=== PATIENT | female | born 1970 | race Caucasian/White ===

== ENCOUNTER 2021-07-07 13:20 | Outpatient (REF) | payer BC, SELFPAY ==
--- NOTE | ~2021-07-07 | XR_ITS ---
EXAMINATION: XR FOOT, RIGHT CLINICAL INFORMATION: Pain right foot COMPARISON: None TECHNIQUE: AP, lateral, and oblique views of the right foot. FINDINGS: The bones and soft tissues are normal. No fracture. Alignment is anatomic. Joint spaces are maintained. There is a small calcaneal heel and retrocalcaneal enthesophyte. There is moderate dorsal midfoot soft tissue swelling. XR/XR foot RT min 3V IMPRESSION: Small calcaneal heel and retrocalcaneal enthesophyte.
== END 2021-07-07 13:21 | disposition home or self-care (01) ==
LOC: HO.HMGCX 13:20
PROVIDERS: PCP Internal Medicine; Visit Provider Internal Medicine
DX: M79.671 Pain in right foot (principal)
CPT/HCPCS: 73630

== ENCOUNTER 2021-12-02 09:38 | Outpatient (REF) | payer BC, SELFPAY ==
--- NOTE | ~2021-12-02 | US_ITS ---
EXAMINATION: US VENOUS ULTRASOUND WITH DOPPLER LOWER EXTREMITY, RIGHT CLINICAL INFORMATION: Pain in right leg. Rule out DVT. COMPARISON: None TECHNIQUE: Ultrasound of the deep veins is performed from the hip to the calf with compression sonography and color and pulse Doppler assessment. Spectral analysis with color-flow imaging is performed. FINDINGS: There is normal venous compression and respiratory variation and augmented flow. The visualized common femoral vein, superficial femoral vein, profunda femoral vein, popliteal vein, and the trifurcation region shows no evidence of deep venous thrombosis. There is no significant popliteal fossa cyst. There are prominent but patent superficial varicose veins in the calf extending to the ankle. If the patient's symptoms persist, followup ultrasound in 5 days 7 days might be of value to exclude proximal propagation from a non-visualized calf vein. US/US venous duplex LE RT IMPRESSION: No DVT demonstrated in the right lower extremity.
[2021-12-02 11:23] LABS: MANUAL DIFF FLAG NO
[2021-12-02 11:33] LABS: Basophils Absolute Auto 0.1 X10*3/uL (0.0-0.2); Basophils Percent Auto 0.7 % (0-2); Eosinophils Absolute Auto 0.1 X10*3/uL (0.0-0.4); Hematocrit 42.4 % (37.0-47.0); Hemoglobin 13.5 g/dl (12.0-16.0); Imm Gran Abs Auto 0.02 X10*3/uL (0.00-0.03); Imm Gran Pct Auto 0.3 % (0.0-0.4); Lymphocytes Absolute Auto 2.1 X10*3/uL (1.2-4.9); Lymphocytes Percent Auto 29.7 % (20-40); Mean Corpuscular HGB Conc 31.8 g/dl (31.0-35.0); Mean Corpuscular Hemoglobin 27.8 pg (27.0-33.0); Mean Corpuscular Volume 87.2 fL (80.0-98.0); Monocytes Absolute Auto 0.5 X10*3/uL (0.1-1.2); Monocytes Percent Auto 7.6 % (2-11); Neutrophils Absolute Auto 4.2 x10*3/uL (2.0-8.3); Neutrophils Percent Auto 59.7 % (45-73); Platelet Count 242 X10*3/uL (160-400); Red Blood Count 4.86 X10*6/uL (4.20-5.50); Red Cell Distribution Width 12.3 % (11.0-16.0); White Blood Count 7.1 X10*3/uL (4.8-10.8)
[2021-12-02 11:47] LABS: B Type Natriuretic Peptide < 10 pg/mL (<100)
[2021-12-02 11:51] LABS: Alanine Aminotransferase 27 U/L (0-31); Anion Gap 13 (12-20); Aspartate Amino Transferase 24 U/L (5-31); Blood Urea Nitrogen 18 mg/dL (9-16); Calcium 9.2 mg/dL (8.4-10.2); Carbon Dioxide 28 mmol/L (22-29); Chloride 102 mmol/L (96-108); Cholesterol 242 mg/dL; Estimated Glomerular Filt Rate > 60; Glucose Fasting 91 mg/dL (60-99); HDL Cholesterol 49 mg/dL; LDL Cholesterol Calculated 162 mg/dl; Potassium 4.3 mmol/L (3.3-5.1); Sodium 139 mmol/L (135-145); Triglycerides 157 mg/dL
[2021-12-02 12:11] LABS: TSH reflex Free T4 0.96 uIU/mL (0.32-4.0); Vitamin D 25-OH Total 29.5 ng/mL (>30)
== END 2021-12-02 09:39 | disposition home or self-care (01) ==
LOC: HO.HMGCLDS 09:38
PROVIDERS: Visit Provider Internal Medicine
DX: I83.813 Varicose veins of bilateral lower extremities with pain (principal); M79.604 Pain in right leg; M79.89 Other specified soft tissue disorders; E66.9 Obesity, unspecified; Z86.39 Personal history of other endocrine, nutritional and metabolic disease
CPT/HCPCS: 36415; 80048; 80061; 82306; 83880; 84443; 84450; 84460; 85025; 93971

== ENCOUNTER 2022-03-23 10:24 | Outpatient (REF) | payer BC, SELFPAY ==
--- NOTE | ~2022-03-23 | US_ITS ---
EXAMINATION: US LOWER EXTREMITY VENOUS (REFLUX EXAM), BILATERAL CLINICAL INDICATION: Chronic venous insufficiency with lower extremity varicose veins COMPARISON: None. TECHNIQUE: Color flow triplex imaging and compression Doppler was performed to evaluate both the deep and the superficial systems bilaterally. To evaluate the superficial system, the examination was performed in the upright position. Color-flow Doppler ultrasound and compression ultrasound were utilized. In addition, maneuvers were utilized to demonstrate reflux. FINDINGS: 1. DEEP VENOUS ULTRASOUND OF THE RIGHT LOWER EXTREMITY: Common Femoral Vein: Compressible, normal respiratory variation and augmented flow. Femoral Vein: Compressible, normal color flow and augmentation. Popliteal Vein: Compressible, normal augmentation. Deep Reflux: There is no evidence of reflux in the deep system in either the common femoral vein or the popliteal vein. There is no evidence of a Coronado's cyst. 2. SUPERFICIAL ULTRASOUND WITH DOPPLER OF RIGHT LOWER EXTREMITY: GREAT SAPHENOUS VEIN: Saphenofemoral Junction: 1.1 cm; Reflux: 3304 ms Proximal Thigh: 0.9 cm; Reflux: 1932 ms Mid Thigh: 0.9 cm; Reflux: 2476 ms Above Knee: 1.5 cm; Reflux: 2916 ms At Knee: 0.7 cm; Reflux: 3508 ms Below Knee: 1.2 cm; Reflux: 2284 ms Mid Calf: 0.6 cm; Reflux: 2052 ms Ankle: 0.3 cm; Reflux: 0 ms DUPLICATED MEDIAL GREAT SAPHENOUS VEIN: Diameter: None Imaged Reflux: NA DUPLICATED LATERAL GREAT SAPHENOUS VEIN: Diameter: 0.4 cm Reflux: 776 ms SMALL SAPHENOUS VEIN: Proximal: 0.3 cm; Reflux: 0 ms Distal: 0.3 cm; Reflux: 780 ms VEIN OF GIACOMINI: None Imaged. PERFORATORS: Location: Proximal calf Size: 0.3 cm Reflux: None VARICOSITIES: Location: Proximal and mid thigh, proximal calf Size: Ranging from 0.3 to 1.2 cm Reflux: Ranging from 1420 ms to 2560 ms 3. DEEP VENOUS ULTRASOUND OF THE LEFT LOWER EXTREMITY: Common Femoral Vein: Compressible, normal respiratory variation and augmented flow. Femoral Vein: Compressible, normal color flow and augmentation. Popliteal Vein: Compressible, normal augmentation. Deep Reflux: There is no evidence of reflux in the deep system in either the common femoral vein or the popliteal vein. There is no evidence of a Coronado's cyst. 4. SUPERFICIAL ULTRASOUND WITH DOPPLER OF LEFT LOWER EXTREMITY: GREAT SAPHENOUS VEIN: Saphenofemoral Junction: 0.8 cm; Reflux: 0 ms Proximal Thigh: 0.6 cm; Reflux: 1160 ms Mid Thigh: 0.5 cm; Reflux: 2784 ms Above Knee: 0.9 cm; Reflux: 1800 ms At Knee: 0.6 cm; Reflux: 3044 ms Below Knee: 0.4 cm; Reflux: 2744 ms Mid Calf: 0.2 cm; Reflux: 0 ms Ankle: 0.2 cm; Reflux: 0 ms DUPLICATED MEDIAL GREAT SAPHENOUS VEIN: Diameter: 0.5 cm Reflux: None DUPLICATED LATERAL GREAT SAPHENOUS VEIN: Diameter: None Imaged Reflux: NA SMALL SAPHENOUS VEIN: Proximal: 0.4 cm; Reflux: 0 ms Distal: 0.3 cm; Reflux: 0 ms VEIN OF GIACOMINI: None Imaged. PERFORATORS: Location: None significant Size: NA Reflux: NA VARICOSITIES: Location: Distal thigh and proximal calf Size: 0.4 to 0.5 cm Reflux: Ranging from 1668 ms to 3540 ms US/US venous duplex LE BI IMPRESSION: Right: Severe reflux in the great saphenous vein. Mild to moderate reflux in the lateral duplicated great saphenous vein and small saphenous vein. There are multiple large varicosities seen arising from the great saphenous vein Left: Severe reflux in the left great saphenous vein. Multiple moderate sized varicose veins in the thigh and calf
== END 2022-03-23 10:25 | disposition home or self-care (01) ==
LOC: HO.US 10:24
PROVIDERS: PCP Internal Medicine; Visit Provider Surgery Vascular Surgery
DX: I83.11 Varicose veins of right lower extremity with inflammation (principal)
CPT/HCPCS: 93970

== ENCOUNTER → 2022-04-23 08:32 | Outpatient (BNVA) | payer BC, SELFPAY | PROVIDERS: PCP Internal Medicine; Visit Provider Surgery Vascular Surgery | DX: I83.11 Varicose veins of right lower extremity with inflammation (principal) | CPT/HCPCS: 36475 ==

== ENCOUNTER 2022-04-26 14:59 | Outpatient (REF) | payer BC, SELFPAY ==
--- NOTE | ~2022-04-26 | US_ITS ---
EXAMINATION: US VENOUS ULTRASOUND WITH DOPPLER LOWER EXTREMITY, RIGHT CLINICAL INFORMATION: Pain in right leg COMPARISON: Ultrasound 03/23/2022 TECHNIQUE: Ultrasound of the deep veins is performed from the hip to the calf with compression sonography and color and pulse Doppler assessment. Spectral analysis with color-flow imaging is performed. FINDINGS: There is thrombus formation throughout the visualized length of the saphenous vein. There is normal venous compression and respiratory variation and augmented flow. The visualized common femoral vein, superficial femoral vein, profunda femoral vein, popliteal vein, and the trifurcation region shows no evidence of deep venous thrombosis. There is no significant popliteal fossa cyst. If the patient's symptoms persist, followup ultrasound in 5 days 7 days might be of value to exclude proximal propagation from a non-visualized calf vein. US/US venous duplex LE RT IMPRESSION: No DVT demonstrated in the right lower extremity. Occlusion/thrombosis of the saphenous vein.
== END 2022-04-26 15:00 | disposition home or self-care (01) ==
LOC: HO.US 14:59
PROVIDERS: Visit Provider Surgery Vascular Surgery
DX: M79.604 Pain in right leg (principal)
CPT/HCPCS: 93971

== ENCOUNTER → 2022-08-19 15:35 | Outpatient (BNVA) | payer BC, SELFPAY | PROVIDERS: PCP Internal Medicine; Visit Provider Surgery Vascular Surgery | DX: Z13.89 Encounter for screening for other disorder (principal) ==

== ENCOUNTER → 2022-09-17 12:30 | Outpatient (BNVA) | payer BC, SELFPAY | PROVIDERS: PCP Internal Medicine; Visit Provider Surgery Vascular Surgery | DX: I83.12 Varicose veins of left lower extremity with inflammation (principal) | CPT/HCPCS: 36475 ==

== ENCOUNTER 2022-09-20 10:25 | Outpatient (REF) | payer BC, SELFPAY ==
--- NOTE | ~2022-09-20 | US_ITS ---
EXAMINATION: US VENOUS ULTRASOUND WITH DOPPLER LOWER EXTREMITY, LEFT CLINICAL INFORMATION: Post ablation. Pain left leg. COMPARISON: None available. TECHNIQUE: Ultrasound of the deep veins is performed from the hip to the calf with compression sonography and color and pulse Doppler assessment. Spectral analysis with color-flow imaging is performed. FINDINGS: There is normal venous compression and respiratory variation and augmented flow. The visualized common femoral vein, superficial femoral vein, profunda femoral vein, popliteal vein, and the trifurcation region shows no evidence of deep venous thrombosis. The greater saphenous vein is closed status post ablation approximately 1.3 cm from the junction. There is no significant popliteal fossa cyst. US/US venous duplex LE LT IMPRESSION: No DVT demonstrated in the left lower extremity. Left greater saphenous vein thrombus status post radiofrequency ablation approximately 1.3 cm from the venous junction.
== END 2022-09-20 10:26 | disposition home or self-care (01) ==
LOC: HO.US 10:25
PROVIDERS: PCP Internal Medicine; Visit Provider Surgery Vascular Surgery
DX: M79.605 Pain in left leg (principal)
CPT/HCPCS: 93971

== ENCOUNTER → 2022-10-05 15:40 | Outpatient (BNVA) | payer BC, SELFPAY | PROVIDERS: PCP Internal Medicine; Visit Provider Surgery Vascular Surgery | DX: Z13.89 Encounter for screening for other disorder (principal) ==

== ENCOUNTER 2022-12-27 11:26 | Outpatient (AMB) | payer BC, SELFPAY ==
--- NOTE | 2022-12-27 11:50 | MHC.OFFWIV ---
Intake Vital Signs 12/27/22 11:56 BP 120/80 Blood Pressure Location Rt brachial Position Sitting Pulse 101 H Pulse Source Pulse Oximeter Temp 97.1 F Temp Source Temporal Artery Scan Pulse Oximetry (%) 97 Oxygen Delivery Method Room Air Intake Visit Reasons: Freq urination, bladder pressure back pain (lobby) Intake Note: Patient here for possible UTI or kidney infection. she has been experiencing frequent urination for about a week and a half, lower back pain/pressure and bladder pressure. she has been taking OTC med for UTI's and as soon as it starts to wear off the symptoms start up again. Patient Tobacco Use Status: Never used Tobacco Allergies erythromycin base Adverse Reaction (Unknown, Verified 12/27/22 12:27) abdominal pain Flonase Allergy (Unknown, Uncoded 12/27/22 12:27) severe sneezing Medication List - Last Reconciled 12/27/22 by Stefan Pagan MD calcium carbonate (Calcium) 600 mg PO DAILY fexofenadine (Gillian Allergy) 180 mg PO DAILY levonorgestrel (Mirena) intrauterine multivitamin 1 tab PO DAILY omeprazole 20 mg PO DAILY triamcinolone acetonide (Nasacort Allergy) 1 spray intranasal DAILY Do you need a note to return to daycare/school/sports/work: Yes HPI Freq urination, bladder pressure back pain (lobby) HPI Details Patient presents for a sick visit. Reports symptoms of increased frequency of urination, burning on urination and discomfort in the suprapubic area. Symptoms started in the past few days. No fevers or chills. No nausea or vomiting. Patient reports vaginal discharge. [facility] Medical History (Updated 10/28/22 @ 15:38 by Jackie Stewart MD) Environmental allergies Heartburn History of vitamin D deficiency Obesity (BMI 35.0-39.9 without comorbidity) Pain and swelling of right lower extremity Varicose veins of both lower extremities with pain Varicose veins of left lower extremity with inflammation Varicose veins of right lower extremity with inflammation Vertigo Surgical History No pertinent past surgical history Status post ablation of incompetent vein using laser (~09/2022) Family History Daughter Mental health disorder Mother Mental health disorder Social History Housing: House Patient Tobacco Use Status: Never used Tobacco e-Cigarette/Vaping Use: Never Used service: No Current occupational status: employed Cognitive needs: No Hearing needs: No Vision needs: Yes Physical Exam Vital Signs: Last Vital Signs Temp 97.1 F 12/27/22 11:56 Pulse 101 H 12/27/22 11:56 BP 120/80 12/27/22 11:56 Pulse Ox 97 12/27/22 11:56 Oxygen Delivery Method Room Air 12/27/22 11:56 Other: Back: no spinal tenderness. General: Yes no CVA tenderness Back/Spine/Pelvis Back: no CVA tenderness Results AMB Urinalysis, Automated UA Leukoctes 500 Ehsan/uL Last Edit by Adan Mckeon CMA on 12/27/22 12:21 UA Nitrite Positive Last Edit by Adan Mckeon CMA on 12/27/22 12:21 UA Urobilinogen 8 mg/dL Last Edit by Adan Mckeon CMA on 12/27/22 12:21 UA Protein 15 mg/dL Last Edit by Adan Mckeon CMA on 12/27/22 12:21 UA pH 5.5 Last Edit by Adan Mckeon CMA on 12/27/22 12:21 UA Blood 10 Sameer/uL Last Edit by Adan Mckeon CMA on 12/27/22 12:21 UA Specific [place] 1.015 Last Edit by Adan Mckeon CMA on 12/27/22 12:21 UA Ketone Positive Last Edit by Adan Mckeon CMA on 12/27/22 12:21 UA Bilirubin 4 mg/dL Last Edit by Adan Mckeon CMA on 12/27/22 12:21 UA Glucose 100 mg/dL Last Edit by Adan Mckeon CMA on 12/27/22 12:21 Results Reviewed Results Reviewed: Laboratory Last Values Urine pH (Auto) 5.5 12/27/22 12:20 Specific [place] (Auto) 1.015 12/27/22 12:20 Urine Protein (Auto) 15 mg/dL 12/27/22 12:20 Glucose (UA)(Auto) 100 mg/dL 12/27/22 12:20 Urine Ketones (Auto) Positive 12/27/22 12:20 Urine Blood (Auto) 10 Sameer/uL 12/27/22 12:20 Urine Nitrite (Auto) Positive 12/27/22 12:20 Urine Bilirubin (Auto) 4 mg/dL 12/27/22 12:20 Urine Urobilinogen (Auto) 8 mg/dL 12/27/22 12:20 Leukocyte Esterase (Auto) 500 Ehsan/uL 12/27/22 12:20 Assessment & Plan Assessment & Plan Orders: Orders AMB Urinalysis Automated Today Z13.9 - Encounter for screening, unspecified Coding Level of Care Code Est Pt Level 4 (13003) Diagnoses
[2022-12-27 11:56] VITALS: BP 120/80; PULSE 101; TEMP 36.2; O2SAT 97
== END 2022-12-27 12:41 | disposition home or self-care (01) ==
PROVIDERS: PCP Internal Medicine; Visit Provider Internal Medicine
DX: R35.0 Frequency of micturition (principal); R10.10 Upper abdominal pain, unspecified
CPT/HCPCS: 81003; 82948; 99214

== ENCOUNTER 2023-11-11 15:17 | Outpatient (AMB) | payer BC, SELFPAY ==
--- NOTE | 2023-11-11 15:34 | MHC.OFFWIV ---
Intake Vital Signs 11/11/23 15:35 Height 5 ft 2 in BP 122/80 Blood Pressure Location Rt brachial Position Sitting Pulse 86 Pulse Source Pulse Oximeter Temp 98.4 F Temp Source Oral Pulse Oximetry (%) 97 Oxygen Delivery Method Room Air Intake Visit Reasons: possible uti Intake Note: patient is here for possible uti Patient Tobacco Use Status: Never used Tobacco Allergies erythromycin base Adverse Reaction (Unknown, Verified 11/11/23 15:35) abdominal pain Flonase Allergy (Unknown, Uncoded 12/27/22 12:27) severe sneezing Medication List - Last Reconciled 11/11/23 by Jose Luis Adam MD calcium carbonate (Calcium 600) 600 mg PO DAILY fexofenadine (Gillian Allergy) 180 mg PO DAILY levonorgestrel (Mirena) intrauterine multivitamin 1 tab PO DAILY omeprazole 20 mg PO DAILY triamcinolone acetonide (Nasacort Allergy) 1 spray intranasal DAILY Do you need a note to return to daycare/school/sports/work: No HPI possible uti HPI Details Patient is a 53-year-old female came in today to be evaluated for possible UTI Her symptoms started early this week and then escalated Patient says that she started drinking more water on Tuesday felt slightly better the day after but still have symptoms Complaining of dysuria and frequency of urination Lower lumbar discomfort and some pelvic discomfort as well No fever chills no nausea vomiting diarrhea UA does show slight infection I am treating her with Macrobid 100 mg b.i.d. for 5 days And Diflucan script sent as per patient's request [facility] Medical History Heartburn Varicose veins of left lower extremity with inflammation Varicose veins of right lower extremity with inflammation History of vitamin D deficiency Varicose veins of both lower extremities with pain Pain and swelling of right lower extremity Environmental allergies Obesity (BMI 35.0-39.9 without comorbidity) Vertigo Surgical History Status post ablation of incompetent vein using laser (~09/2022) No pertinent past surgical history Family History Daughter Mental health disorder Mother Mental health disorder Social History Housing: House Patient Tobacco Use Status: Never used Tobacco e-Cigarette/Vaping Use: Never Used service: No Current occupational status: employed Cognitive needs: No Hearing needs: No Vision needs: Yes Review of Systems Const All systems reviewed & are unremarkable except as noted in HPI and below Physical Exam Vital Signs: Last Vital Signs Temp 98.4 F 11/11/23 15:35 Pulse 86 11/11/23 15:35 BP 122/80 11/11/23 15:35 Pulse Ox 97 11/11/23 15:35 Oxygen Delivery Method Room Air 11/11/23 15:35 Const General: no acute distress Orientation/consciousness: patient oriented x3 Eyes General: appearance normal, both eyes and all related structures Resp Effort & Inspection: normal respiratory effort and able to speak in complete sentences GI Other: Mild suprapubic soreness General: Yes no CVA tenderness Back/Spine/Pelvis Back: no CVA tenderness Neuro General: patient oriented x3 Psych Mental Status: mental status grossly normal Assessment & Plan Assessment & Plan (1) Acute cystitis: Code(s): N30.00 - Acute cystitis without hematuria Qualifiers: Hematuria presence: without hematuria Qualified Code(s): N30.00 - Acute cystitis without hematuria Plan Patient is a 53-year-old female came in today to be evaluated for possible UTI Her symptoms started early this week and then escalated Patient says that she started drinking more water on Tuesday felt slightly better the day after but still have symptoms Complaining of dysuria and frequency of urination Lower lumbar discomfort and some pelvic discomfort as well No fever chills no nausea vomiting diarrhea UA does show slight infection I am treating her with Macrobid 100 mg b.i.d. for 5 days And Diflucan script sent as per patient's request Medications: New nitrofurantoin monohyd/m-cryst 100 mg (Macrobid) must administer with a meal/food 100 mg PO Q12H 6 caps 0RF 3 days fluconazole may repeat second dose 72 hrs after first dose if symptoms persist 150 mg PO Q3D 2 tabs 0RF 2 doses Coding Level of Care Code Est Pt Level 3 (66319) Diagnoses Acute cystitis without hematuria N30.00 Hematuria presence: without hematuria
[2023-11-11 15:35] VITALS: BP 122/80; PULSE 86; TEMP 36.9; O2SAT 97
== END 2023-11-11 16:44 | disposition home or self-care (01) ==
PROVIDERS: PCP Internal Medicine; Visit Provider Internal Medicine
DX: N30.00 Acute cystitis without hematuria (principal)
CPT/HCPCS: 99213

== ENCOUNTER 2023-11-30 08:48 | Outpatient (AMB) | payer BC, SELFPAY ==
--- NOTE | 2023-11-30 08:52 | MHC.PC.OV ---
Vital Signs 11/30/23 08:54 Height 5 ft 2 in Weight 204 lb BMI 37.3 BP 120/84 Blood Pressure Location Lt brachial Position Sitting Pulse 74 Pulse Source Pulse Oximeter Pulse Oximetry (%) 98 Oxygen Delivery Method Room Air Intake Visit Reasons: Annual PE Intake Note: Patient here for physical exam. Allergies erythromycin base Adverse Reaction (Unknown, Verified 11/30/23 09:02) abdominal pain Flonase Allergy (Unknown, Uncoded 11/30/23 09:02) severe sneezing Medication List - Last Reconciled 11/30/23 by Jackie Stewart MD calcium carbonate (Calcium 600) 600 mg PO DAILY fexofenadine (Gillian Allergy) 180 mg PO DAILY levonorgestrel (Mirena) intrauterine multivitamin 1 tab PO DAILY omeprazole 20 mg PO DAILY triamcinolone acetonide (Nasacort Allergy) 1 spray intranasal DAILY Tobacco use date assessed: 11/30/23 Dental Screening Dental Screen Date: 11/30/23 Did you have a dental visit in the last 12 months?: Yes Did you have a dental problem in the last 6 months where you did not have access to dental care?: No Was dental information given to patient?: Patient has dentist HPI Annual PE HPI Details 53-year-old lady here today for physical exam. She goes to [facility] for her screening mammogram, last done 06/11/2023 with benign findings. She also gets her cervical cancer screening and pelvic exam done from an outside OBGYN Dr. Brown, which is currently up-to-date. Colon cancer screening was done in 2021, had Cologuard testing which came back negative, due again in 2024. She has seasonal runny nose nasal congestion, takes fexofenadine and Nasacort nasal spray as needed. Just recently is recovering from a COVID infection, feels much better. [facility] Medical History Heartburn Varicose veins of left lower extremity with inflammation Varicose veins of right lower extremity with inflammation History of vitamin D deficiency Varicose veins of both lower extremities with pain Pain and swelling of right lower extremity Environmental allergies Obesity (BMI 35.0-39.9 without comorbidity) Vertigo Surgical History Status post ablation of incompetent vein using laser (~09/2022) No pertinent past surgical history Family History Daughter Mental health disorder Mother Mental health disorder Social History Housing: House Patient Tobacco Use Status: Never used Tobacco e-Cigarette/Vaping Use: Never Used service: No Current occupational status: employed Cognitive needs: No Hearing needs: No Vision needs: Yes Female Reproductive History Menstrual control method: progestin IUCD Date of Mammogram: 06/11/23 Other: Sees Dr. Brown for her routine Pap and pelvic exam Questionnaire PHQ-9 Over the last 2 weeks, how often have you been bothered by any of the following problems? 1. Little interest or pleasure in doing things: not at all 2. Feeling down, depressed, or hopeless: not at all 3. Trouble falling or staying asleep, or sleeping too much: not at all 4. Feeling tired or having little energy: not at all 5. Poor appetite or overeating: not at all 6. Feeling bad about yourself - or that you are a failure or have let yourself or your family down: not at all 7. Trouble concentrating on things, such as reading the newspaper or watching television: not at all 8. Moving or speaking so slowly that other people could have noticed. Or the opposite - being so fidgety or restless that you have been moving around a lot more than usual: not at all 9. Thoughts that you would be better off or of hurting yourself in some way: not at all Total score: 0 Depression Screening Interpretation: Negative Depression Screening Done: Yes 23994 - PHQ-9 Billing: Yes Source: Developed by Drs. Pacheco Mendoza, Kiah Snyder, Noble Nunez and colleagues, with an educational cecy from [employer]. Thrive Questionnaire Date Thrive assessed: 11/30/23 I am a: Patient What is your living situation today?: I have a steady place to live Within the past 12 months, did the food you bought not last and you didn't have the money to get more?: Never true Within the past 12 months, did you worry whether your food would run out before you got money to buy more?: Never true Do you have trouble paying for medicines?: No Do you have trouble getting transportation to medical appointments?: No Do you have trouble paying your heating and electricity bill?: No Do you have trouble taking care of your child, family member or friend?: No Do you have trouble with day-to-day activities such as bathing, preparing meals, shopping, managing finances, etc.?: No Are you currently unemployed and looking for a job?: No Are you interested in more education?: No THRIVE Score: 0 AUDIT C Alcohol Use Questionnaire (AUDIT-C) 1. How often do you have a drink containing alcohol?: Never Total Score: 0 ELBA-7 AMB Questionnaire ELBA-7 Date ELBA - 7 assessed: 11/30/23 Feeling nervous, anxious, or on edge: 0 = Not at all Not being able to stop or control worryin = Not at all Trouble relaxin = Not at all Being so restless that it is hard to sit still: 0 = Not at all Becoming easily annoyed or irritable: 0 = Not at all Feeling afraid as if something awful might happen: 0 = Not at all Source: Developed by Drs. Pacheco Mendoza, Kiah Snyder, Noble Nunez and colleagues, with an educational cecy from [employer]. ELBA-7 Assessment Billing ELBA-7 Assessment Tool: ELBA-7 Assessment 71457 Review of Systems Const Reports no additional complaints Eyes Details: Wears bifocal lenses ENT Reports Normal hearing present, Denies ear discharge, Denies hoarseness, Denies epistaxis, Reports nasal congestion, Denies sinus pain and Denies sore throat Card Denies chest pain, Denies chest pain at rest, Denies chest pain with activity, Denies pedal edema and Denies dyspnea Resp Denies cough, Denies dyspnea and Denies wheezing GI Reports as per HPI, Denies abdominal pain, Denies hematochezia and Denies change in bowel habits Reports no additional complaints Musc Denies abnormal gait, Denies muscle cramps and Denies radiating pain into limb Skin/Breast Denies skin ulcer and Denies wounds Neuro Reports Normal hearing present and Denies abnormal gait Psych Reports no additional complaints Endo Reports no additional complaints Aristeo/Lymph Reports no additional complaints Aller/Immun Reports seasonal rhinorrhea and Denies wheezing Physical exam (Primary Care) Vital Signs: Last Vital Signs Pulse 74 11/30/23 08:54 BP 120/84 11/30/23 08:54 Pulse Ox 98 11/30/23 08:54 Oxygen Delivery Method Room Air 11/30/23 08:54 BMI result Body Mass Index 37.3 BMI Assessment/Plan discussion: High BMI High, discussed plan: lifestyle, weight reduction, dietary and physical activity Tobacco/Smoking Status: Tobacco use Status Tobacco use date assessed 11/30/23 11/30/23 08:57 Patient Tobacco Use Status Never used Tobacco 11/30/23 08:54 e-Cigarette/Vaping Use Never Used 11/30/23 08:54 Depression Screening Interpretation: Negative Thrive Assessment: Date of Thrive Assessment Date Thrive assessed 10/28/22 11/30/23 08:54 Const General: comfortable and no acute distress Nutritional Appearance: obese Orientation/consciousness: patient oriented x3 Limitations: no limitations HENMT Head: Yes normocephalic Ears: hearing grossly normal bilaterally, external ears normal, TM's normal bilaterally and Abnormal EAC present excessive cerumen bilateral General nose exam: Normal external nose present Face and sinus: Yes sinuses nontender and Yes face symmetric Mouth: Normal oral and palatal mucosa present, oropharynx normal and moist mucous membranes Eyes General: appearance normal, both eyes and all related structures Pupils: Equal, round and reactive pupils present EOM: EOMs intact bilaterally Neck Neck: Yes full ROM, Yes no lymphadenopathy and Yes supple Thyroid: Thyroid normal Chest Breast/axilla palpation: normal palpation of the breasts Resp Effort & Inspection: normal respiratory effort and able to speak in complete sentences Auscultation: clear to auscultation bilaterally Cardio Palpation: normal PMI Rate: regular rate Rhythm: regular rhythm Heart sounds: S1 normal heart sound present and S2 normal heart sound present Peripheral pulses: other (Decreased pedal pulses bilaterally right more than the left) GI Palpation (GI): Soft to palpation, nontender and no guarding Other: Currently sees her Ob, Dr. Brown General: Yes no CVA tenderness Back/Spine/Pelvis Back: no CVA tenderness and No back tenderness Skin General skin exam: no rashes or lesions noted Neuro General: patient oriented x3 Cranial nerves: Yes Equal, round and reactive pupils present and Yes Normal hearing present Extrem General: Yes full ROM, Yes no joint enlargement, Yes no clubbing, cyanosis or edema and Yes normal gait Psych Appearance: grossly normal and well kempt Mental Status: mental status grossly normal Speech and movement: Normal speech and movement present Affect: normal affect Attitude: cooperative Thought process: Normal thought process present Thought content: Normal thought content present Assessment and Plan Assessment & Plan (1) Annual visit for general adult medical examination with abnormal findings: Code(s): Z00.01 - Encounter for general adult medical examination with abnormal findings Plan: Will check appropriate labs. Continue dental visit every 6 months and regular eye exams, at least every 2 years, currently up-to-date goes to [facility] Take adequate calcium in diet and vitamin-D 3 at 2000 IU per cap once a day, in addition to weight-bearing exercises to help maintain good muscle tone and weight control. Instructed to do self-breast exam, and continue with yearly mammogram, due again in May or early 07/02/2024, gets it done at [facility] . Up-to-date with her colon cancer screening, had Cologuard testing done 2021, due again in 2024. Has had COVID vaccines but has not yet had a booster, just recently got Covid, gets yearly flu shots, up-to-date with her Tdap, and shingles vaccination. She recently had a new Mirena IUD inserted by Dr. Brown who also does her routine pelvic exam and Pap smear, latter currently up to date (2) Dyslipidemia: Code(s): E78.5 - Hyperlipidemia, unspecified Plan: Fasting lipid panel ordered today. Reinforced importance of following healthy diet, getting regular exercise at least 15 minutes of cardio- exercises daily (3) Encounter for counseling regarding advance directives: Code(s): Z71.89 - Other specified counseling Plan: Initiated the conversation about Advanced Directives. Advanced Directives help patients prepare for current and future decisions about their medical treatment and place of care. Discussed with patient that it is a process where a patients current condition and prognosis are reviewed, their wishes for information regarding their illness are elicited, and likely medical dilemmas are presented and options discussed. Healthcare proxy form completed today. The form can be amended as needed, reviewed yearly and make changes as needed (4) Obesity (BMI 35.0-39.9 without comorbidity): Code(s): E66.9 - Obesity, unspecified Plan: Discussed need to increase activity and weight reduction. Recommended focusing on improving health instead of dieting. Mediterranean diet is a healthy diet that helps, limit food high in fat, sugar, and calories. Eat slowly, pay attention to portion sizes, plan your meals ahead of time, start regular physical activity, at least 150 minutes of moderate intensity exercise, or 90 minutes per week of vigorous exercise. Keeping a food diary, tracking what you eat and your physical activity can help assess what improvements you can make. There are many health problems associated with being overweight/obese, so it is important to improve your diet and exercise. There are medications and surgical options available, but Lifestyle changes are the 1st step. Orders: Orders Alanine Aminotransferase Today E66.9 - Obesity, unspecified, E78.5 - Hyperlipidemia, unspecified, Z00.01 - Encounter for general adult medical examination with abnormal findings, Z13.1 - Encounter for screening for diabetes mellitus, Z71.89 - Other specified counseling Basic Metabolic Panel Fasting Today E66.9 - Obesity, unspecified, E78.5 - Hyperlipidemia, unspecified, Z00.01 - Encounter for general adult medical examination with abnormal findings, Z13.1 - Encounter for screening for diabetes mellitus, Z71.89 - Other specified counseling Lipid Panel Today E66.9 - Obesity, unspecified, E78.5 - Hyperlipidemia, unspecified, Z00.01 - Encounter for general adult medical examination with abnormal findings, Z13.1 - Encounter for screening for diabetes mellitus, Z71.89 - Other specified counseling Vitamin D 25-OH Total Today E66.9 - Obesity, unspecified, E78.5 - Hyperlipidemia, unspecified, Z00.01 - Encounter for general adult medical examination with abnormal findings, Z13.1 - Encounter for screening for diabetes mellitus, Z71.89 - Other specified counseling, Z86.39 - Personal history of other endocrine, nutritional and metabolic disease Aspartate Amino Transferase Today E66.9 - Obesity, unspecified, E78.5 - Hyperlipidemia, unspecified, Z00.01 - Encounter for general adult medical examination with abnormal findings, Z13.1 - Encounter for screening for diabetes mellitus, Z71.89 - Other specified counseling Coding Level of Care Code Est Pt Prev Care 40-64y(65697) Diagnoses Annual visit for general adult medical examination with abnormal findings Z00.01 Dyslipidemia E78.5 Encounter for counseling regarding advance directives Z71.89 Obesity (BMI 35.0-39.9 without comorbidity) E66.9 Additional Codes ELBA-7 Assessment Billing - ELBA-7 Assessment Tool: ELBA-7 Assessment 36857 ([id number])
[2023-11-30 08:54] VITALS: BP 120/84; PULSE 74; O2SAT 98; BMI 37.3
== END 2023-11-30 09:32 | disposition home or self-care (01) ==
LOC: HO.HMGC 08:48
PROVIDERS: PCP Internal Medicine; Visit Provider Internal Medicine
DX: Z00.00 Encounter for general adult medical examination without abnormal findings (principal); E78.5 Hyperlipidemia, unspecified; E66.9 Obesity, unspecified; Z68.37 Body mass index [BMI] 37.0-37.9, adult; Z71.89 Other specified counseling
CPT/HCPCS: 99396

== ENCOUNTER 2023-12-30 15:32 | Outpatient (AMB) | payer BC, SELFPAY ==
--- NOTE | 2023-12-30 15:38 | AM.OFFWIN_ITS ---
Intake Vital Signs 12/30/23 15:40 Height 5 ft 2 in Weight 207 lb BMI 37.9 BP 132/84 Blood Pressure Location Rt brachial Position Sitting Pulse 91 Pulse Source Pulse Oximeter Temp 98.5 F Temp Source Oral Pulse Oximetry (%) 96 Oxygen Delivery Method Room Air Intake Visit Reasons: EP ?bronchitis/?ear infection Intake Note: Pt here c/o productive cough and chest tightness. ? ear infection Patient Tobacco Use Status: Never used Tobacco Allergies erythromycin base Adverse Reaction (Unknown, Verified 12/30/23 15:39) abdominal pain Flonase Allergy (Unknown, Uncoded 12/30/23 15:39) severe sneezing Do you need a note to return to daycare/school/sports/work: No HPI HPI Comments History of Present Illness Details 53 y/o female patient who presents to [facility] in clinic with c/o cough, wheezing and SOB for over 1 week now. Denies fevers, chills, nausea or vomiting. [facility] Medical History (Updated 11/30/23 @ 09:27 by Jackie Stewart MD) Dyslipidemia Heartburn Varicose veins of left lower extremity with inflammation Varicose veins of right lower extremity with inflammation History of vitamin D deficiency Varicose veins of both lower extremities with pain Pain and swelling of right lower extremity Environmental allergies Obesity (BMI 35.0-39.9 without comorbidity) Vertigo Surgical History Status post ablation of incompetent vein using laser (~09/2022) No pertinent past surgical history Family History Daughter Mental health disorder Mother Mental health disorder Social History Housing: House Patient Tobacco Use Status: Never used Tobacco e-Cigarette/Vaping Use: Never Used service: No Current occupational status: employed Cognitive needs: No Hearing needs: No Vision needs: Yes Review of Systems Const All systems reviewed & are unremarkable except as noted in HPI and below Physical Exam Vital Signs: Last Vital Signs Temp 98.5 F 12/30/23 15:40 Pulse 91 12/30/23 15:40 BP 132/84 12/30/23 15:40 Pulse Ox 96 12/30/23 15:40 Oxygen Delivery Method Room Air 12/30/23 15:40 BMI result Body Mass Index 37.9 Const General: comfortable and no acute distress Nutritional Appearance: obese Orientation/consciousness: patient oriented x3 HEENT Head: Yes normocephalic Ears: external ears normal, TM abnormal obstructed by cerumen bilateral and unable to visualize TM General nose exam: Normal nasal mucous membranes and turbinates present Face and sinus: Yes sinuses nontender Mouth: moist mucous membranes Throat: Yes posterior oropharynx normal Resp Effort & Inspection: normal respiratory effort and Actively coughing Auscultation: no crackles, no rales, rhonchi and wheezes Cardio Heart sounds: S1 normal heart sound present and S2 normal heart sound present Neuro General: patient oriented x3, gait normal and moves all extremities Psych Speech and movement: Normal speech and movement present Assessment & Plan Assessment & Plan (1) Cough in adult: Code(s): R05.9 - Cough, unspecified Plan: OTC cough remedies Warm fluids with honey Rest Acetaminophen for pain relief (2) Wheezing on auscultation: Code(s): R06.2 - Wheezing Plan: Albuterol rescue Inhaler as directed. Medications: New prednisone 50 mg PO DAILY 5 days 5 tabs 0RF R06.2 - Wheezing benzonatate 100 mg PO TID 90 caps 0RF R05.9 - Cough, unspecified doxycycline hyclate 100 mg PO BID 10 days 20 caps 0RF R05.9 - Cough, unspecified albuterol sulfate 90 mcg/actuation 2 puffs inhalation Q4-6H PRN 6.7 grams 0RF shortness of breath or wheezing R05.9 - Cough, unspecified, R06.2 - Wheezing Coding Level of Care Code Est Pt Level 3 (99988) Diagnoses Cough in adult R05.9 Wheezing on auscultation R06.2 Time Spent (min) 15
[2023-12-30 15:40] VITALS: BP 132/84; PULSE 91; TEMP 36.9; O2SAT 96; BMI 37.9
== END 2023-12-30 16:16 | disposition home or self-care (01) ==
PROVIDERS: PCP Internal Medicine; Visit Provider Nurse Practitioner Family
DX: R05.9 Cough, unspecified (principal); R06.2 Wheezing
CPT/HCPCS: 99213

== ENCOUNTER 2024-12-29 08:10 | Outpatient (REF) | payer BC, SELFPAY ==
--- OUTSIDE RECORDS SUMMARY | 2024-12-29 08:13 | XMS_ITS | Patient Health Record ---
Author Organization [facility] (Formerly [facility])[3] Address [address] [place] [id number] Care Team Providers Care Information Resources Manager Name Role Phone MIROSLAVA TORRES MD Primary Care Provider Gabriella Guadalupe Unavailable [phone] Allergies Allergen (clinical drug ingredient) Drug/Non Drug Allergy documented on EMR Reaction Allergy Type Onset Date Status erythromycin ERYTHROMYCIN ABDOMINAL CRAMPING Drug Allergy Active azithromycin ZITHROMAX ABDOMINAL CRAMPING Drug Allergy Active Reason For Referral No Information Medications Medication SIG (Take, Route, Frequency, Duration) Notes Start Date End Date Status Multivitamin Women - as directed Orally Active Advil PRN Active Mirena (52 MG) 20 MCG/24HR Intrauterine INSERTED 11/01/23 Active Vitamin C 500 MG Orally Act bg Nasacort Allergy 24HR 55 MCG/ACT 1 spray in each nostril Nasally Once a day; Duration: 30 day(s) Active Calcium Citrate + - as directed Orally Active Gillian Allergy 180 MG 1 tablet as needed Orally Once a day Active Omeprazole 40 MG 1 capsule Orally Onc e a day Active Tylenol PRN Active Social History Tobacco Use: Social History Observation Description Date Details (start date - stop date) Never Smoker NA - NA Tobacco Use/Smoking Question Answer Notes Are you a nonsmoker Alcohol Screen (Audit-C) Question Answer Notes Did you have a drink contain ing alcohol in the past year? Yes How often did you have a dri nk containing alcohol in the past year? Monthly or less (1 point) How many drinks did you have on a typical day when you were drinking in the past year? 1 or 2 drinks (0 point) Points 1 Interpretation Negative Sexual History Question Answer Notes Had sex in the past 12 months (vaginal, oral, or anal)? Yes with Men only Prevention strategies discussed: Other Section Notes: Marital status: Lives with: children, significant other Occupation: employed full-time Nutrition: average diet Exercise: occasional walking Sexual activity: monogamous relationship. Contraception: intrauterine device .CE: Smoking: never a smoker .CE: Alcohol: rare alcohol Illicit drugs: no Seatbelt: yes Problems Problem Type SNOMED Code ICD Code Onset Dates Problem Status W/U Status Risk Notes Problem Subacute and chronic vaginitis (N76.1) Active confirmed Problem Allergic rhinitis (66469752) Allergic rhinitis, cause unspecified (477.9) Active confirmed Major Problem Acute pharyngitis (271016558) Acute pharyngitis (462) Active confirmed Diag Problem Acute upper respiratory infection (46352179) Acute upper respiratory infections of unspecified site (465.9) Active confirmed Diag Problem Acute bronchitis (90771305) Acute bronchitis (466.0) Active confirmed Diag Problem Exacerbation of asthma (135708066) Asthma, unspecified, with (acute) exacerbation (493.92) Active confirmed Diag Problem Cough (47106543) Cough (786.2) Active confirmed Diag Problem Gynecological examination normal (366273428440967) Routine gynecological examination (V72.31) Active confirmed Diag Problem Insertion of intrauterine contraceptive device (45333388) Insertion of intrauterine contraceptive device (V25.1) Active confirmed Major Problem Surveillance of intrauterine device contraception done (355794067833871) Surveillance of previously prescribed intrauterine contraceptive device (V25.42) Active confirmed Major Problem Screening for malignant neoplasm of cervix (105930633) Screening for malignant neoplasm of the cervix (V76.2) Active confirmed Diag Plan Of Treatment Pending Test Test Name Order Date Urinalysis 06/29/2021 Urinalysis 09/19/2023 Urinalysis 06/10/2020 ONE SWAB 09/06/2016 MM Digital Mammo Screening 06/10/2020 MM Digital Mammo Screening 09/19/2023 MM Digital Mammo Screening 09/15/2022 MM Digital Mammo Screening 06/29/2021 MM Digital Mammo Unilat Left 09/06/2016 Next Appt Details Provider Name:Gabriella diaz, 03/25/2025 03:00:00 PM, [address], [address], [place], [address], Insurance Providers Payer Name Payer Address Payer Phone Subscriber Number Group Number Insured Name Patient Relationship to Insured Coverage Start Date Coverage End Date [employer] OF [facility] [address] [place] [address] [id number] Spouse - patient is the spouse of the insured Medical (General) History Medical History History ICD Code Unspecified asthma with (acute) exacerba tion J45.901 Acute bronchitis, unspecified J20.9 Cough R05 Acute upper respiratory infection, unspe cified J06.9 Allergic rhinitis, unspecified J30.9 Acute pharyngitis, unspecified J02.9 Unspecified lump in breast N63 Glycosuria R81 Surgical History Surgery Date(Month/Year) Tonsillectomy Veniclose procedure right leg Hospitalization History Reason Date(Month/Year) See Surgical Hx 3 Vaginal Deliveries
[2024-12-29 11:15] LABS: MANUAL DIFF FLAG NO
[2024-12-29 11:21] LABS: Hematocrit 41.8 % (37.0-47.0); Hemoglobin 13.5 g/dl (12.0-16.0); Imm Gran Abs Auto 0.02 X10*3/uL (0.00-0.03); Imm Gran Pct Auto 0.3 % (0.0-0.4); Lymphocytes Absolute Auto 1.4 X10*3/uL (1.2-4.9); Mean Corpuscular HGB Conc 32.3 g/dl (31.0-35.0); Mean Corpuscular Hemoglobin 27.9 pg (27.0-33.0); Mean Corpuscular Volume 86.4 fL (80.0-98.0); NRBC Abs Auto 0.000 X10*3/uL (0.0-0.012); NRBC Pct Auto 0.0 /100WBC (0.0-0.2); Platelet Count 233 X10*3/uL (160-400); Red Blood Count 4.84 X10*6/uL (4.20-5.50); White Blood Count 6.9 X10*3/uL (4.8-10.8)
[2024-12-29 11:25] LABS: Hemoglobin A1C 138.9661 umol/L; Total Hemoglobin (HGBA1C) 3532.4833 umol/L
[2024-12-29 11:47] LABS: Alanine Aminotransferase 28 U/L (0-31); Anion Gap 13 (12-20); Aspartate Amino Transferase 35 U/L (5-31); Blood Urea Nitrogen 16 mg/dL (9-16); Calcium 9.1 mg/dL (8.4-10.2); Carbon Dioxide 27 mmol/L (22-29); Chloride 105 mmol/L (96-108); Cholesterol 206 mg/dL (<200); Estimated Glomerular Filt Rate > 60; HDL Cholesterol 40 mg/dL (>40); Potassium 4.1 mmol/L (3.3-5.1); Sodium 141 mmol/L (135-145); Triglycerides 167 mg/dL (<150)
== END 2024-12-29 08:11 | disposition home or self-care (01) ==
LOC: HO.HMGCLDS 08:10
PROVIDERS: PCP Internal Medicine; Visit Provider Internal Medicine
DX: R12 Heartburn (principal); R73.9 Hyperglycemia, unspecified; E78.5 Hyperlipidemia, unspecified; E66.9 Obesity, unspecified
CPT/HCPCS: 36415; 80048; 80061; 83036; 84450; 84460; 85025

== ENCOUNTER 2025-01-03 13:51 | Outpatient (AMB) | payer BC, SELFPAY ==
[2025-01-03 13:54] VITALS: BP 122/88; PULSE 90; RESP 16; TEMP 36.9; O2SAT 97; BMI 40.2
--- NOTE | 2025-01-03 13:54 | MHC.PC.OV ---
Vital Signs 01/03/25 13:54 Height 5 ft 2 in Weight 220 lb BMI 40.2 BP 122/88 Blood Pressure Location Lt brachial Position Sitting Respiration 16 Pulse 90 Pulse Source Pulse Oximeter Temp 98.5 F Temp Source Oral Pulse Oximetry (%) 97 Oxygen Delivery Method Room Air Intake Visit Reasons: Annual PE Intake Note: Peoplesoft Required: No Accompanied by: Self / Same As Patient Allergies erythromycin base Adverse Reaction (Unknown, Verified 01/03/25 14:06) abdominal pain Flonase Allergy (Unknown, Uncoded 01/03/25 14:06) severe sneezing Medication List - Last Reconciled 01/03/25 by Jackie Stewart MD albuterol sulfate 90 mcg/actuation 2 puffs inhalation Q4-6H PRN calcium carbonate (Calcium 600) 600 mg PO DAILY fexofenadine (Gillian Allergy) 180 mg PO DAILY levonorgestrel (Mirena) intrauterine multivitamin 1 tab PO DAILY omeprazole 20 mg PO DAILY triamcinolone acetonide (Nasacort Allergy) 1 spray intranasal DAILY Tobacco use date assessed: 01/03/25 Dental Screening Dental Screen Date: 01/03/25 Did you have a dental visit in the last 12 months?: Yes Did you have a dental problem in the last 6 months where you did not have access to dental care?: No Was dental information given to patient?: Patient has dentist HPI Annual PE HPI Details - 54-year-old female presenting for her physical exam. -has been having right thumb pain, likely due to osteoarthritis, with joint cracking and occasional numbness - Gastroesophageal reflux disease: Experiences nocturnal heartburn despite omeprazole use, with dietary modifications providing symptom relief. - Hyperlipidemia: latest fasting labs showed Elevated triglycerides and borderline low HDL cholesterol, attributed to poor dietary habits . - Seasonal allergies: confirmed by elevated eosinophils in blood work, relieved by taking fexofenadine and occasional Nasacort inhaler use - Preventative care: up-to-date with her screening mammogram and Pap smear results, both of which came back negative . She sees Dr. Brown who also inserted her Mirena. She had Cologuard test which came back with negative results, due for repeat screening in 2027. [facility] Medical History (Updated 01/03/25 @ 14:26 by Jackie Stewart MD) Pain of right thumb Dyslipidemia Heartburn Varicose veins of left lower extremity with inflammation Varicose veins of right lower extremity with inflammation History of vitamin D deficiency Varicose veins of both lower extremities with pain Pain and swelling of right lower extremity Environmental allergies Obesity (BMI 35.0-39.9 without comorbidity) Vertigo Surgical History Status post ablation of incompetent vein using laser (~09/2022) No pertinent past surgical history Family History (Updated 01/03/25 @ 14:16 by Jackie Stewart MD) Daughter Mental health disorder Mother Mental health disorder Breast cancer Father Leukemia Diabetes mellitus Dyslipidemia CAD (coronary artery disease) Social History Housing: House Patient Tobacco Use Status: Never used Tobacco e-Cigarette/Vaping Use: Never Used service: No Current occupational status: employed Cognitive needs: No Hearing needs: No Vision needs: Yes Female Reproductive History Menstrual control method: progestin IUCD Questionnaire PHQ-9 Over the last 2 weeks, how often have you been bothered by any of the following problems? 1. Little interest or pleasure in doing things: not at all 2. Feeling down, depressed, or hopeless: not at all 3. Trouble falling or staying asleep, or sleeping too much: not at all 4. Feeling tired or having little energy: not at all 5. Poor appetite or overeating: not at all 6. Feeling bad about yourself - or that you are a failure or have let yourself or your family down: not at all 7. Trouble concentrating on things, such as reading the newspaper or watching television: not at all 8. Moving or speaking so slowly that other people could have noticed. Or the opposite - being so fidgety or restless that you have been moving around a lot more than usual: not at all 9. Thoughts that you would be better off or of hurting yourself in some way: not at all Total score: 0 Depression Screening Interpretation: Negative Depression Screening Done: Yes 23592 - PHQ-9 Billing: Yes Source: Developed by Drs. Pacheco Mendoza, Kiah Snyder, Noble Nunez and colleagues, with an educational cecy from [employer]. Thrive Questionnaire Date Thrive assessed: 01/01/25 I am a: Patient What is your living situation today?: I have a steady place to live Within the past 12 months, did the food you bought not last and you didn't have the money to get more?: Often true Within the past 12 months, did you worry whether your food would run out before you got money to buy more?: Never true Do you have trouble paying for medicines?: No Do you have trouble getting transportation to medical appointments?: No Do you have trouble paying your heating and electricity bill?: No Do you have trouble taking care of your child, family member or friend?: No Do you have trouble with day-to-day activities such as bathing, preparing meals, shopping, managing finances, etc.?: No Are you currently unemployed and looking for a job?: No Are you interested in more education?: No Please select the resources that you would like help with: None Currently or been in a relationship where the following occur: No concerns reported THRIVE Score: 1 AUDIT C Alcohol Use Questionnaire (AUDIT-C) 1. How often do you have a drink containing alcohol?: Never 3. How often do you have six or more drinks on one occasion?: Never Total Score: 0 ELBA-7 AMB Questionnaire ELBA-7 Date ELBA - 7 assessed: 01/03/25 Feeling nervous, anxious, or on edge: 0 = Not at all Not being able to stop or control worryin = Not at all Worrying too much about different things: 0 = Not at all Trouble relaxin = Not at all Being so restless that it is hard to sit still: 0 = Not at all Becoming easily annoyed or irritable: 0 = Not at all Feeling afraid as if something awful might happen: 0 = Not at all Total ELBA-7 score (0-4 normal; 5-9 mild; 10-14 moderate; 15-21 severe): 0 Source: Developed by Drs. Pacheco Mendoza, Kiah Snyder, Noble Nunez and colleagues, with an educational cecy from [employer]. ELBA-7 Assessment Billing ELBA-7 Assessment Tool: ELBA-7 Assessment 95905 Review of Systems Const Reports no additional complaints Eyes Details: Goes to vision works Reports requires corrective lenses ENT Details: Dental prophylaxis q.6 month Reports Normal hearing present, Denies hoarseness, Denies epistaxis, Denies sinus pain and Denies sore throat Card Denies chest pain at rest, Denies chest pain with activity, Denies pedal edema and Denies dyspnea Resp Denies cough, Denies dyspnea and Denies wheezing GI Reports as per HPI, Denies abdominal pain, Denies hematochezia and Denies change in bowel habits Reports no additional complaints Musc Denies muscle cramps and Denies radiating pain into limb Skin/Breast Denies breast pain, Denies breast mass and Denies lesions Neuro Reports no additional complaints and Reports Normal hearing present Psych Reports no additional complaints Endo Reports no additional complaints Aristeo/Lymph Reports no additional complaints Aller/Immun Reports seasonal rhinorrhea and Denies wheezing Physical exam (Primary Care) Vital Signs: Last Vital Signs Temp 98.5 F 01/03/25 13:54 Pulse 90 01/03/25 13:54 Resp 16 01/03/25 13:54 BP 122/88 01/03/25 13:54 Pulse Ox 97 01/03/25 13:54 Oxygen Delivery Method Room Air 01/03/25 13:54 BMI result Body Mass Index 40.2 BMI Assessment/Plan discussion: High BMI High, discussed plan: lifestyle, weight reduction, dietary and physical activity Tobacco/Smoking Status: Tobacco use Status Tobacco use date assessed 01/03/25 01/03/25 13:59 Patient Tobacco Use Status Never used Tobacco 01/03/25 13:59 e-Cigarette/Vaping Use Never Used 01/03/25 13:59 PHQ-9: PHQ-9 Score PHQ-9: Total score 0 01/03/25 14:06 Depression Screening Interpretation: Negative Thrive Assessment: Date of Thrive Assessment Date Thrive assessed 01/01/25 01/03/25 13:59 Currently or been in a relationship where the following occur: No concerns reported Const General: no acute distress Nutritional Appearance: obese Orientation/consciousness: patient oriented x3 HENMT Head: Yes normocephalic Ears: external ears normal and TM's normal bilaterally General nose exam: Normal external nose present Face and sinus: Yes face symmetric Mouth: oropharynx normal and moist mucous membranes Eyes General: appearance normal, both eyes and all related structures Pupils: Equal, round and reactive pupils present EOM: EOMs intact bilaterally Neck Neck: Yes full ROM, Yes no lymphadenopathy and Yes supple Thyroid: Thyroid normal Chest Breast/axilla palpation: normal palpation of the breasts Resp Effort & Inspection: normal respiratory effort and able to speak in complete sentences Auscultation: clear to auscultation bilaterally Cardio Rate: regular rate Rhythm: regular rhythm Heart sounds: S1 normal heart sound present and S2 normal heart sound present GI Palpation (GI): Soft to palpation, nontender and no guarding Other: Currently sees her Ob, Dr. Brown General: Yes no CVA tenderness Back/Spine/Pelvis Back: no CVA tenderness and No back tenderness Skin General skin exam: no rashes or lesions noted Neuro General: patient oriented x3 Cranial nerves: Yes Equal, round and reactive pupils present and Yes Normal hearing present Extrem General: Yes full ROM, Yes no joint enlargement, Yes no clubbing, cyanosis or edema and Yes normal gait Psych Appearance: grossly normal and well kempt Mental Status: mental status grossly normal Speech and movement: Normal speech and movement present Affect: normal affect Attitude: cooperative Thought process: Normal thought process present Thought content: Normal thought content present Results Reviewed Results Reviewed: Name: Gloria Cruz Age/Sex: 54/F : 1970 Unit#: [id number] Attend Dr: Jackie Stewart MD Re12/29/24 Status: DEP REF Location: [facility] Disch: SPEC : [id number] CHAYA: 12/29/24 STATUS: COMP REQ : [id number] RECD: 12/29/[address]: Jackie Stewart MD COMP: 12/29/24 ENTERED: 12/29/[address] [facility] [address]: ORDERED: CBC Auto Diff Test Result Flag Reference WBC 6.9 4.8-10.8 X10*3/uL RBC 4.84 4.20-5.50 X10*6/uL HGB 13.5 12.0-16.0 g/dl HCT 41.8 37.0-47.0 % MCV 86.4 80.0-98.0 fL MCH 27.9 27.0-33.0 pg MCHC 32.3 31.0-35.0 g/dl RDW 12.5 11.0-16.0 % PLT 233 160-400 X10*3/uL MPV 11.5 9.4-12.3 fL Neut Pct Auto 65.3 45-73 % ImGran Pct Auto 0.3 0.0-0.4 % Lymp Pct Auto 19.7 L 20-40 % Donley Pct Auto 9.3 2-11 % Eos Pct Auto 4.5 H 0-4 % Baso Pct Auto 0.9 0-2 % NRBC Pct Auto 0.0 0.0-0.2 /100WBC ANC Neut Abs # 4.5 2.0-8.3 x10*3/uL ImGran Abs Auto 0.02 0.00-0.03 X10*3/uL Lymph Abs Auto 1.4 1.2-4.9 X10*3/uL Donley Abs Auto 0.6 0.1-1.2 X10*3/uL Eos Abs Auto 0.3 0.0-0.4 X10*3/uL Baso Abs Auto 0.1 0.0-0.2 X10*3/uL NRBC Abs Auto 0.000 0.0-0.012 X10*3/uL Name: Gloria Cruz Age/Sex: 54/F : 1970 Unit#: [id number] Attend Dr: Jackie Stewart MD Re12/29/24 Status: DEP REF Location: [facility] Disch: SPEC : [id number] CHAYA: 12/29/24 STATUS: COMP REQ : [id number] RECD: 12/29/24-[address]: Jackie Stewart MD COMP: 12/29/241147 ENTERED: 12/29/[address] [facility] [address]: ORDERED: Met Prof Fast, AST, ALT, Lipid Panel Test Result Flag Reference Sodium 141 135-145 mmol/L Potassium 4.1 3.3-5.1 mmol/L CL 105 96-108 mmol/L CO2 27 22-29 mmol/L Gap 13 12-20 BUN 16 9-16 mg/dL Creat 0.78 0.5-1.4 mg/dL eGFR > 60 Chronic Kidney Disease: Estimated GFR < 60 mL/min/1.73m2 Severe Kidney Disease: Estimated GFR < 15 mL/min/1.73m2 FBS 90 60-99 mg/dL CA 9.1 8.4-10.2 mg/dL AST (GOT) 35 H 5-31 U/L ALT (GPT) 28 0-31 U/L Triglyceride 167 H <150 mg/dL Desirable Triglyceride: less than 150 mg/dL Borderline High Triglyceride 150-199 mg/dL High Triglyceride: 200-499 mg/dL Very High Triglyceride: greater than or equal to 5OO mg/dL Cholesterol 206 H <200 mg/dL Desirable Cholesterol: less than 200 mg/dL Borderline High Cholesterol: 200-239 mg/dL High Cholesterol: greater than 239 mg/dL LDL Calculated 133 H <100 mg/dL Desirable LDL: less than 100 mg/dL Near Optimal/Above Optimal LDL: 110-129 mg/dL Borderline High LDL: 130-159 mg/dL High LDL: 160-189 mg/dL Very High LDL: greater than or equal to 190 mg/dL HDL 40 L >40 mg/dL Desirable HDL: greater than 40 mg/dL Note: This HDL assay may give artificially low results in patients with liver disease. Coding Level of Care Code Est Pt Prev Care 40-64y(52127) Diagnoses Annual visit for general adult medical examination with abnormal findings Z00.01 Pain of right thumb M79.644 Heartburn R12 Obesity (BMI 35.0-39.9 without comorbidity) E66.9 Dyslipidemia E78.5 Environmental allergies Z91.09 Additional Codes ELBA-7 Assessment Billing - ELBA-7 Assessment Tool: ELBA-7 Assessment 28078 ([id number]) PHQ-9 - 43843 - PHQ-9 Billing: Yes ([id number]) Assessment & Plan Assessment & Plan (1) Annual visit for general adult medical examination with abnormal findings: Code(s): Z00.01 - Encounter for general adult medical examination with abnormal findings (2) Pain of right thumb: Code(s): M79.644 - Pain in right finger(s) Category: Medical (3) Heartburn: Code(s): R12 - Heartburn Category: Medical (4) Obesity (BMI 35.0-39.9 without comorbidity): Code(s): E66.9 - Obesity, unspecified Category: Medical (5) Dyslipidemia: Code(s): E78.5 - Hyperlipidemia, unspecified Category: Medical (6) Environmental allergies: Code(s): Z91.09 - Other allergy status, other than to drugs and biological substances Category: Medical Plan -For osteoarthritis, the patient was advised to use diclofenac gel for symptomatic relief of thumb pain, with instructions to apply it as needed. Additionally, she was encouraged to continue using Tylenol Arthritis for pain management. -For gastroesophageal reflux disease, the patient was advised to switch from omeprazole to famotidine, particularly when consuming foods that may trigger symptoms, and to continue dietary modifications to manage symptoms effectively. - Regarding hyperlipidemia, the patient was counseled on dietary changes to reduce triglycerides and improve cholesterol levels, with an emphasis on reducing processed foods and increasing physical activity. -Seasonal allergies were noted, and the patient was informed about the elevated eosinophils in her blood work, with recommendations to manage symptoms as needed. - Preventative care measures were reinforced, including the completion of a mammogram, Pap smear, and Cologuard test, with plans for future screenings. The patient was reminded to maintain regular eye examinations and dental cleanings. Vaccinations were reviewed, confirming that she is up to date with COVID-19 boosters, flu shots, and the shingles vaccine. Patient was informed and verbally consented to the use of an ambient scribe for clinic note documentation during this visit. Medications: New famotidine 40 mg PO BEDTIME 30 tabs 5RF diclofenac sodium 1% apply to single elbow, wrist or hand; for hand includes palm/fingers/back of hand 2 grams topical QID PRN 100 grams 0RF Joint pain M79.644 - Pain in right finger(s) Refilled albuterol sulfate 90 mcg/actuation 2 puffs inhalation Q4-6H PRN 6.7 grams 2RF shortness of breath or wheezing R05.9 - Cough, unspecified, R06.2 - Wheezing
--- OUTSIDE RECORDS SUMMARY | 2025-01-03 13:55 | XMS_ITS | Patient Health Record ---
Author Organization [facility] Address [address] [place] [id number] Care Team Providers [employer] Name Role Phone MIROSLAVA TORRES MD Primary Care Provider Gabriella Guadalupe Unavailable [phone] Allergies Allergen (clinical drug ingredient) Drug/Non Drug [...] vaginitis (N76.1) Active confirmed Problem Allergic rhinitis (69609553) Allergic rhinitis, cause unspecified (477.9) Active confirmed Major Problem Acute pharyngitis (054793167) Acute pharyngitis (462) Active confirmed Diag Problem Acute upper respiratory infection (57826498) Acute upper respiratory infections of unspecified site (465.9) Active confirmed Diag Problem Acute bronchitis (84758879) Acute bronchitis (466.0) Active confirmed Diag Problem Exacerbation of asthma (794751891) Asthma, unspecified, with (acute) exacerbation (493.92) Active confirmed Diag Problem Cough (92944053) Cough (786.2) Active confirmed Diag Problem Gynecological examination normal (878480364547441) Routine gynecological examination (V72.31) Active confirmed Diag Problem Insertion of intrauterine contraceptive device (15496290) Insertion of intrauterine contraceptive device (V25.1) Active confirmed Major Problem Surveillance of intrauterine device contraception done (888722659532368) Surveillance of previously prescribed intrauterine contraceptive device (V25.42) Active confirmed Major Problem Screening for malignant neoplasm of cervix (650522133) Screening for malignant neoplasm of the cervix (V76.2) Active confirmed Diag Plan Of Treatment Pending Test Test Name Order Date Urinalysis 06/10/2020 Urinalysis 06/29/2021 Urinalysis 09/19/2023 ONE SWAB 09/06/2016 MM Digital Mammo Screening 06/10/2020 MM Digital Mammo Screening 06/29/2021 MM Digital Mammo Screening 09/19/2023 MM Digital Mammo Screening 09/15/2022 MM Digital Mammo Unilat Left 09/06/2016 Next Appt Details Provider Name:Gabriella diaz, 03/25/2025 03:00:00 PM, [address], [address], [place], [address], Insurance Providers Payer Name Payer Address Payer Phone Subscriber Number Group Number Insured Name Patient Relationship to Insured Coverage Start Date Coverage End Date [employer] [facility] [address] [place] [address] [id number] Spouse - patient is the spouse [...]
== END 2025-01-03 16:12 | disposition home or self-care (01) ==
LOC: HO.HMCC 13:52
PROVIDERS: PCP Internal Medicine; Visit Provider Internal Medicine
DX: Z00.01 Encounter for general adult medical examination with abnormal findings (principal); E66.9 Obesity, unspecified; Z68.41 Body mass index [BMI] 40.0-44.9, adult; M79.644 Pain in right finger(s); R12 Heartburn; E78.5 Hyperlipidemia, unspecified; Z91.09 Other allergy status, other than to drugs and biological substances

== ENCOUNTER → 2025-01-03 13:51 | Outpatient (BNVA) | payer BC, SELFPAY | PROVIDERS: PCP Internal Medicine; Visit Provider Internal Medicine | DX: Z00.01 Encounter for general adult medical examination with abnormal findings (principal); M79.644 Pain in right finger(s); R12 Heartburn; E66.9 Obesity, unspecified; Z68.41 Body mass index [BMI] 40.0-44.9, adult; E78.5 Hyperlipidemia, unspecified; Z91.09 Other allergy status, other than to drugs and biological substances; Z13.31 Encounter for screening for depression; Z13.39 Encounter for screening examination for other mental health and behavioral disorders | CPT/HCPCS: 96127 ==